=== PATIENT | male | born 1990 | race Two or more races ===

== ENCOUNTER 2017-09-03 07:30 | Day surgery (SDC) | payer BC ==
[2017-09-03] MEDS ORDERED: PROPOFOL 10 MG/ML VIAL IV ONE (07:31)
[2017-09-03] MEDS ORDERED: FENTANYL PF 100MCG/2ML VIAL IV ONE (07:31)
[2017-09-03] MEDS ORDERED: LIDOCAINE 2% MDV (20MG/ML) 20ML VIAL IV ONE (07:31)
--- NOTE | 2017-09-03 12:50 | Operative Note ---
DATE OF SURGERY: 09/03/2017 PREOPERATIVE DIAGNOSIS: Epigastric pain, reflux. POSTOPERATIVE DIAGNOSIS: Epigastric pain, reflux. OPERATION: EGD with biopsy. PROCEDURE: The patient is a 26-year-old male who was brought to the endoscopy suite and placed in a supine position. Appropriate monitoring was placed including nasal O2, pulse oximetry, and blood pressure cuff. The patient was then rotated in left lateral position. Propofol anesthesia titrated to effect. Bite block was inserted. A well-lubricated GI gastroscope was placed down the patient's oropharynx, down the esophagus to the GE junction. This was noted to be somewhat inflamed with distal esophagitis noted. Random biopsies quadrants were taken. Scope was advanced at this time upwards. Stomach was seen including fundus, body, cardia, and antrum. The pylorus was cannulated and the first 2 parts of duodenum were seen. The duodenum appeared to look grossly normal. There was diffuse antritis noted. Random biopsies were taken here as well. The remaining part of the stomach appeared normal. Retroflexion maneuver was done. No hiatal hernia noted. Cardia and fundus appeared normal. The scope was straightened, gas evacuated, the scope was fully removed. FINDINGS: 1. Distal esophagitis. 2. Antritis. We will await histopathology on the biopsies. Continue his PPI as directed. Refrain from NSAIDs. CC: Oswlado NICOLE
== END 2017-09-03 09:54 | disposition home or self-care (01) ==
LOC: HOP 07:30
PROVIDERS: ATTEND Surgery
DX: R10.13 Epigastric pain (principal); K21.9 Gastro-esophageal reflux disease without esophagitis; K20.8 Other esophagitis; K29.60 Other gastritis without bleeding; R56.9 Unspecified convulsions